=== PATIENT | female | born 1985 | race Caucasian/White ===

== ENCOUNTER 2018-04-09 14:05 | Inpatient (IN) | payer OTHER ==
[~2018-04-09] VITALS: Ht 177.8 cm; Wt 81.3 kg
[2018-04-19] MEDS ORDERED: OXYTOCIN 30U/ 0.9% NaCL 500ML 500 ML IV ONE (06:52)
[2018-04-19] MEDS ORDERED: LACTATED RINGERS 1,000 ML IV SCH ×3 (06:52→17:37)
[2018-04-19] MEDS ORDERED: D5%-LACTATED RINGERS 1,000 ML IV SCH (06:52)
[2018-04-19] MEDS ORDERED: FENTANYL PF 100 MCG/2ML IVPush PRN (07:00)
[2018-04-19] MEDS ORDERED: PLEASE ENTER ALLERGIES MC SCH (07:00)
[2018-04-19] MEDS ORDERED: FENTANYL PF 100 MCG/2ML IV PRN (07:00)
[2018-04-19] MEDS ORDERED: ONDANSETRON 2MG/ML, 2ML IVPush PRN ×2 (07:00→18:00)
[2018-04-19 07:02] VITALS: BP 117/73
[2018-04-19] MEDS ORDERED: PREN-3 PO (07:12)
[2018-04-19] MEDS ORDERED: MAGN400T36 PO (07:13)
[2018-04-19 07:21] LABS: BASOPHILS # (AUTO) 0.01 x10^3/uL (0-0.1); BASOPHILS % (AUTO) 0 % (0-1); EOSINOPHILS # (AUTO) 0.13 x10^3/uL (0-0.4); EOSINOPHILS % (AUTO) 1 % (1-7); LYMPHOCYTES # (AUTO) 2.28 x10^3/uL (1-3.4); LYMPHOCYTES % (AUTO) 24 % (22-44); MD NO; MEAN CORPUSCULAR HEMOGLOBIN 32.6 pg (27.0-34.8); MEAN CORPUSCULAR HGB CONC 34.3 g/dL (32.4-35.8); MEAN CORPUSCULAR VOLUME 95.1 fL (80-100); MEAN PLATELET VOLUME 9.1 fL (7.4-10.4); MONOCYTES # (AUTO) 0.94 x10^3/uL (0.2-0.8); MONOCYTES % (AUTO) 10 % (2-9); NEUTROPHILS # (AUTO) 5.99 x10^3/uL (1.8-6.8); NEUTROPHILS % (AUTO) 64 % (42-75); PLATELET COUNT 228 x10^3/uL (130-400); RED BLOOD COUNT 4.05 x10^6/uL (3.82-5.3)
[2018-04-19] MEDS ORDERED: OXYTOCIN 30U/ 0.9% NaCL 500ML 500 ML ONE ×2 (07:24→22:24)
[2018-04-19] MEDS ORDERED: MISOPROSTOL 25 MCG TABLET ONE ×2 (07:24→11:33)
[2018-04-19] MEDS: MISOPROSTOL 25 MCG TABLET VG PRN ×2 (07:43→12:46)
[2018-04-19] MEDS ORDERED: NEWBORN KIT ONE (07:53)
[2018-04-19] MEDS ORDERED: FENTANYL/BUPIV./NS/PF 250 ML EPIDCONT SCH ×2 (15:27→17:37)
[2018-04-19] MEDS ORDERED: LACTATED RINGERS 1,000 ML IVBOLUS PRN ×2 (15:30→18:00)
[2018-04-19] MEDS ORDERED: FENTANYL PF 500 MCG, BUPIVACAINE/PF 0.5%, 30ML 62.5 ML in SODIUM CHLORIDE 0.9% 177.5 ML EPIDCONT SCH (16:00)
[2018-04-19] MEDS ORDERED: FENTANYL PF 100 MCG/2ML ONE (16:45)
[2018-04-19] MEDS ORDERED: BUPIVACAINE 0.25% ONE (17:13)
[2018-04-19] MEDS ORDERED: EPHEDRINE 50 MG/ML, 1ML IVPush PRN (18:00)
[2018-04-19] MEDS ORDERED: NALOXONE 0.4 MG/ML, 1ML IVPush PRN (18:00)
[2018-04-19] MEDS ORDERED: DIPHENHYDRAMINE 50 MG/ML, 1ML IVPush PRN (18:00)
[2018-04-19] MEDS ORDERED: OXYTOCIN 30U/ 0.9% NaCL 500ML 500 ML IV PRN (18:36)
[2018-04-19] MEDS: OXYTOCIN 30U/ 0.9% NaCL 500ML 500 ML IV SCH (20:15)
[2018-04-19] MEDS ORDERED: GLYCERIN ADULT SUPP PR PRN (20:30)
[2018-04-19] MEDS ORDERED: ONDANSETRON 2MG/ML, 2ML IV PRN (20:30)
[2018-04-19] MEDS ORDERED: OXYcodone/APAP 5/325MG TABLET PO PRN (20:30)
[2018-04-19] MEDS ORDERED: METHYLERGONOVINE 0.2 MG/ML IM PRN (20:30)
[2018-04-19] MEDS ORDERED: OXYcodone IR 5MG TABLET PO PRN ×2 (20:30)
[2018-04-19] MEDS ORDERED: CARBOPROST TROMETHAMINE 250 MCG/ML, 1ML IM PRN (20:30)
[2018-04-19] MEDS ORDERED: MISOPROSTOL 200 MCG TABLET PR PRN (20:30)
[2018-04-19] MEDS ORDERED: ACETAMINOPHEN 325 MG TABLET PO PRN (20:30)
[2018-04-19] MEDS ORDERED: METOCLOPRAMIDE 5 MG/ML, 2ML IV PRN (20:30)
[2018-04-19] MEDS ORDERED: BISACODYL 10 MG SUPP PR PRN (20:30)
[2018-04-19] MEDS ORDERED: IBUPROFEN 600 MG TABLET ONE (22:23)
[2018-04-19] MEDS ORDERED: OXYcodone/APAP 5/325MG TABLET ONE (22:24)
[2018-04-19] MEDS: IBUPROFEN 600 MG TABLET PO PRN (22:27)
[2018-04-20 00:30] VITALS: BP 107/68
[2018-04-20 04:15] VITALS: BP 107/68
[2018-04-20] MEDS: OXYTOCIN 30U/ 0.9% NaCL 500ML 500 ML IV SCH ×2 (06:15→16:26)
[2018-04-20] MEDS: DOCUSATE 100 MG CAPSULE PO PRN ×2 (07:23→20:15)
[2018-04-20] MEDS: IBUPROFEN 600 MG TABLET PO PRN ×3 (07:23→20:15)
[2018-04-20 07:38] LABS: BASOPHILS # (AUTO) 0.03 x10^3/uL (0-0.1); BASOPHILS % (AUTO) 0 % (0-1); EOSINOPHILS # (AUTO) 0.08 x10^3/uL (0-0.4); EOSINOPHILS % (AUTO) 1 % (1-7); LYMPHOCYTES # (AUTO) 2.06 x10^3/uL (1-3.4); LYMPHOCYTES % (AUTO) 15 % (22-44); MD NO; MEAN CORPUSCULAR HGB CONC 33.4 g/dL (32.4-35.8); MEAN CORPUSCULAR VOLUME 95.8 fL (80-100); MEAN PLATELET VOLUME 9.5 fL (7.4-10.4); MONOCYTES # (AUTO) 1.08 x10^3/uL (0.2-0.8); MONOCYTES % (AUTO) 8 % (2-9); NEUTROPHILS # (AUTO) 10.28 x10^3/uL (1.8-6.8); NEUTROPHILS % (AUTO) 76 % (42-75); PLATELET COUNT 212 x10^3/uL (130-400); RED CELL DISTRIBUTION WIDTH 13.5 % (9.6-15.2)
[2018-04-20 08:30] VITALS: BP 106/67
[2018-04-20] MEDS: PRENATAL VIT/IRON/FA 1 EACH TABLET PO SCH (09:00)
[2018-04-20] MEDS ORDERED: RHOGAM FROM BLOOD BANK 1 NOTE EA IM/IV ONE (13:00)
[2018-04-20 13:17] VITALS: BP 99/62
[2018-04-20 18:12] VITALS: BP 115/75
[2018-04-20 20:30] VITALS: BP 102/67
[2018-04-21] MEDS: OXYTOCIN 30U/ 0.9% NaCL 500ML 500 ML IV SCH ×2 (02:15→13:10)
[2018-04-21] MEDS: IBUPROFEN 600 MG TABLET PO PRN ×2 (05:27→15:30)
[2018-04-21 07:27] VITALS: BP 107/63
[2018-04-21] MEDS: DOCUSATE 100 MG CAPSULE PO PRN (09:23)
[2018-04-21] MEDS: PRENATAL VIT/IRON/FA 1 EACH TABLET PO SCH (09:24)
[2018-04-21] MEDS ORDERED: OXYC-302 PO (10:57)
[2018-04-21] MEDS ORDERED: DOCU-131 PO (10:57)
[2018-04-21] MEDS ORDERED: IBUP-1222 PO (10:57)
== END 2018-04-21 15:55 | disposition home or self-care (01) | DRG 807 ==
LOC: LDIP 04-19 06:50 → 2NW 04-20
PROVIDERS: ADMIT Obstetrics & Gynecology; ATTEND Obstetrics & Gynecology
PROC: 10E0XZZ Delivery of Products of Conception, External Approach (ICD-10-PCS; principal; 2018-04-19)
PROC: 0KQM0ZZ Repair Perineum Muscle, Open Approach (ICD-10-PCS; 2018-04-19)
PROC: 10907ZC Drainage of Amniotic Fluid, Therapeutic from Products of Conception, Via Natural or Artificial Opening (ICD-10-PCS; 2018-04-19)
PROC: 3E033VJ Introduction of Other Hormone into Peripheral Vein, Percutaneous Approach (ICD-10-PCS; 2018-04-19)
PROC: 3E0R3BZ Introduction of Anesthetic Agent into Spinal Canal, Percutaneous Approach (ICD-10-PCS; 2018-04-19)
PROC: 00HU33Z Insertion of Infusion Device into Spinal Canal, Percutaneous Approach (ICD-10-PCS; 2018-04-19)
DX: O48.0 Post-term pregnancy (principal); Z37.0 Single live birth; O69.81X0 Labor and delivery complicated by cord around neck, without compression, not applicable or unspecified; Z3A.41 41 weeks gestation of pregnancy; O26.893 Other specified pregnancy related conditions, third trimester; O70.1 Second degree perineal laceration during delivery; Z67.91 Unspecified blood type, Rh negative; O75.89 Other specified complications of labor and delivery; G43.909 Migraine, unspecified, not intractable, without status migrainosus
CPT/HCPCS: 36415; J2790; 85025; 85461; 86850; 86900; G0378; J3010; J3490; J2590; J7050; J7120